=== PATIENT | female | born 1965 | race Caucasian/White ===

== ENCOUNTER 2017-01-17 08:34 | Outpatient (CLI) | payer OTHER ==
[2017-01-17 09:26] LABS: Alanine Aminotransferase 16 units/L (7-56); Albumin 3.8 g/dL (3.9-5); Albumin/Globulin Ratio 1.2 %; Alkaline Phosphatase 76 units/L (35-129); Anion Gap 22 mmol/L; Blood Urea Nitrogen 15 mg/dL (7-17); Calcium 10.1 mg/dL (8.4-10.2); Carbon Dioxide 22 mmol/L (22-30); Chloride 100.5 mmol/L (98-107); Cholesterol 172 mg/dL (50-199); Glucose 98 mg/dL (65-100); HDL Cholesterol 45 mg/dL (40-59); LDL Cholesterol,Direct 82 mg/dL (50-130); Potassium 4.4 mmol/L (3.6-5.0); Sodium 140 mmol/L (137-145); Triglycerides 229 mg/dL (2-149)
== END 2017-01-17 08:35 | disposition home or self-care (01) ==
LOC: LAB 08:34
PROVIDERS: ATTEND Internal Medicine
DX: E11.9 Type 2 diabetes mellitus without complications (principal)
CPT/HCPCS: 36415; 80053; 80061; 83036; 84443

== ENCOUNTER 2017-03-21 13:00 | Outpatient (CLI) | payer SELFPAY ==
--- NOTE | 2017-03-21 13:39 | Mammography Report ---
Bilateral mammogram: Compared to 08/26/14. CAD study utilized. Findings: Predominance adipose tissue bilaterally. No mass or microcalcification. Benign axillary nodes. Impression: Benign findings. Annual followup recommended. BI-RADS CATEGORY: 2 = Benign ACR BI-RADS MAMMOGRAPHIC CODES: 0 = Needs additional imaging evaluation; 1 = Negative; 2 = Benign; 3 = Probably benign; 4 = Suspicious; 5 = Malignant; 6 = Known biopsy-proven malignancy COMMENT: 1. Dense breast tissue, i.e., adenosis, fibrocystic changes, etc., may obscure an underlying neoplasm. 2. Approximately 10% of cancers are not detected with mammography. 3. A negative mammography report should not delay biopsy if a clinically suspicious mass is present. COMMENT: Patient follow-up letters are generated in [employer].
== END 2017-03-21 13:01 | disposition home or self-care (01) ==
LOC: MAMMO 13:00
PROVIDERS: ATTEND Obstetrics & Gynecology Gynecology
DX: Z12.31 Encounter for screening mammogram for malignant neoplasm of breast (principal)
CPT/HCPCS: 77067; G0202

== ENCOUNTER 2017-03-21 20:41 | Inpatient (IN) | payer SELFPAY ==
[2017-03-21 21:41] LABS: Basophils % (Auto) 0.9 % (0.0-1.8); Eosinophils % (Auto) 1.2 % (0.0-4.3); Hematocrit 35.6 % (30.3-42.9); Hemoglobin 11.8 gm/dl (10.1-14.3); Mean Corpuscular HGB Conc 33 % (30-34); Mean Corpuscular Hemoglobin 26 pg (28-32); Mean Corpuscular Volume 80 fl (79-97); Platelet Count 264 K/mm3 (140-440); Red Blood Count 4.48 M/mm3 (3.65-5.03); Red Cell Distribution Width 12.7 % (13.2-15.2); White Blood Count 12.6 K/mm3 (4.5-11.0)
[2017-03-21 21:57] LABS: Anion Gap 25 mmol/L; BUN/Creatinine Ratio 33; Blood Urea Nitrogen 13 mg/dL (7-17); Calcium 9.9 mg/dL (8.4-10.2); Carbon Dioxide 19 mmol/L (22-30); Chloride 77.4 mmol/L (98-107); Glucose 134 mg/dL (65-100); Potassium 3.8 mmol/L (3.6-5.0)
[2017-03-21 22:08] LABS: Sodium 119 mmol/L (137-145)
[2017-03-21] MEDS ORDERED: NACL 0.9% 1000 ML 1,000 ML IV ONE (22:21)
[2017-03-21] MEDS ORDERED: ATIVAN IV ONE (23:06)
[2017-03-21] MEDS ORDERED: ATIVAN ONE (23:09)
--- NOTE | 2017-03-21 23:11 | Emergency Department Report ---
HPI - General Chief Complaint: Dyspnea/Respdistress Time Seen by Provider: 03/21/17 22:21 - HPI HPI: Room 7 The patient is a 51-year-old female presenting with a chief complaint of feeling anxious. Family states for the past 3-4 weeks the patient has been restless and suffering from insomnia. The patient appears anxious and complains intermittently of chest pain, shortness of breath headache. Patient denies nausea or vomiting. When asked how she is feeling right now the patient replies she feels anxious. Location: Mental state, see above Duration:. 4 weeks Quality: Anxious Severity: Moderate Modifying factors: [see above] Context: [see above] Mode of transportation: [not driving] ED Past Medical Hx - Past Medical History Previous Medical History?: Yes Hx Hypertension: Yes Hx Diabetes: Yes Hx Asthma: Yes Additional medical history: HIGH CHOLESTEROL / MENAPAUSE - Surgical History Past Surgical History?: Yes Hx Cholecystectomy: Yes Additional Surgical History: C SECTION - Family History Family history: no significant - Social History Smoking Status: Never Smoker Substance Use Type: None ED Review of Systems ROS: Stated complaint: SOB Other details as noted in HPI Comment: All other systems reviewed and negative Constitutional: denies: chills, fever Eyes: denies: eye pain, eye discharge, vision change ENT: denies: ear pain, throat pain Respiratory: shortness of breath Cardiovascular: chest pain Endocrine: no symptoms reported Gastrointestinal: denies: abdominal pain, nausea, vomiting, diarrhea Genitourinary: denies: urgency, dysuria, discharge Musculoskeletal: denies: back pain, joint swelling, arthralgia Skin: denies: rash, lesions Neurological: headache Psychiatric: denies: anxiety, depression Hematological/Lymphatic: denies: easy bleeding, easy bruising Physical Exam - Physical Exam Vital Signs: Vital Signs 03/21/17 03/21/17 21:01 22:37 Temperature 98.4 F 98 F Pulse Rate 92 H 96 H Respiratory 24 18 Rate Blood Pressure 111/63 Blood Pressure 141/82 [Left] O2 Sat by Pulse 100 100 Oximetry Physical Exam: GENERAL: The patient is well-developed well-nourished female appearing restless on the stretcher frequently moving and changing positions. [] HEENT: Normocephalic. Atraumatic. Extraocular motions are intact. Patient has moist mucous membranes. NECK: Supple. No meningitic signs are noted. Trachea midline CHEST/LUNGS: Clear to auscultation. There is no respiratory distress noted. HEART/CARDIOVASCULAR: Regular. There is tachycardia. There is no gallop rub or murmur. ABDOMEN: Abdomen is soft, nontender. Patient has normal bowel sounds. There is no abdominal distention. SKIN: There is no rash. There is no edema. There is no diaphoresis. NEURO: The patient is awake, alert, and oriented. The patient is cooperative. The patient has no focal neurologic deficits. The patient has normal speech. Cranial nerves II through XII grossly intact. Patient appears restless MUSCULOSKELETAL: There is no evidence of acute injury. ED Course Vital Signs 03/21/17 03/21/17 21:01 22:37 Temperature 98.4 F 98 F Pulse Rate 92 H 96 H Respiratory 24 18 Rate Blood Pressure 111/63 Blood Pressure 141/82 [Left] O2 Sat by Pulse 100 100 Oximetry ED Medical Decision Making - Lab Data Result diagrams: 03/21/17 21:24 03/21/17 21:24 Laboratory Tests 03/21/17 03/21/17 03/21/17 21:24 21:24 21:24 WBC 12.6 H RBC 4.48 Hgb 11.8 Hct 35.6 MCV 80 MCH 26 L MCHC 33 RDW 12.7 L Plt Count 264 Lymph % (Auto) 30.6 [place] % (Auto) 7.8 H Eos % (Auto) 1.2 Baso % (Auto) 0.9 Lymph # 3.9 [place] # 1.0 H Eos # 0.1 Baso # 0.1 Seg Neutrophils % 59.5 Seg Neutrophils # 7.5 Sodium 119 L* Potassium 3.8 Chloride 77.4 L Carbon Dioxide 19 L Anion Gap 25 BUN 13 Creatinine 0.4 L Estimated GFR > 60 BUN/Creatinine Ratio 33 Glucose 134 H Calcium 9.9 Troponin T < 0.010 HCG, Qual Negative - EKG Data -: EKG Interpreted by Me EKG shows normal: sinus rhythm Rate: normal - EKG Data When compared to previous EKG there are: previous EKG unavailable Interpretation: other (no ischemic changes seen) - Radiology Data Radiology results: report reviewed (CT head), image reviewed (chest x-ray, CT head) interpreted by me: Chest x-ray-no focal infiltrate, no pneumothorax CT head (read by radiologist)-no evidence of acute stroke or hemorrhage - Differential Diagnosis ICH, ACS, pericarditis, pneumonia, Critical care attestation.: If time is entered above; I have spent that time in minutes in the direct care of this critically ill patient, excluding procedure time. ED Disposition Clinical Impression: Hyponatremia, Altered mental status, Chest pain Disposition: OP ADMIT IP TO THIS HOSP Is pt being admited?: Yes Does the pt Need Aspirin: Yes Condition: Serious Instructions: Chest Pain (ED) Referrals: PRIMARY CARE, [Primary Care Provider] - 3-5 Days Time of Disposition: 00:47 (Hospitalist paged)
--- NOTE | 2017-03-22 00:24 | Cat Scan Report ---
FINAL REPORT EXAM: CT HEAD/BRAIN WO CON HISTORY: altered mental status, headache, hyponatremia TECHNIQUE: Routine axial imaging was obtained of the brain without IV contrast. FINDINGS: There is no evidence of acute stroke or hemorrhage. The ventricular system is appropriate in size and is symmetric. There are benign basal ganglial calcifications bilaterally. The sinuses reveal minimal mucosal thickening in the sphenoid sinus. The mastoid air cells are well pneumatized. IMPRESSION: No evidence of acute stroke or hemorrhage. Mild mucosal thickening in the sphenoid sinus.
[2017-03-22] MEDS ORDERED: ASPIRIN PO ONE (00:48)
--- NOTE | 2017-03-22 01:19 | History and Physical Report ---
History of Present Illness Date of examination: 03/22/17 Chief complaint: Anxiety History of present illness: 51-year-old female with past medical history significant for diabetes mellitus, hypertension, asthma, eczema was presented to the emergency department for complaints of anxiety, hot flushes for the last 2 months. Patient doesn't speak [place]ic and get history from her family member. She has been feeling, sad, decreased appetite, difficulty of sleeping and anxiety. patient denied Suicidal ideation. patient saw her Steamer Tender for hot flushes and was given hormone patch and didn't help her much. patient has generalized shaking for the last 1 month. She had generalized eczematous rash. REVIEW OF SYSTEMS: GENERAL: decreased weight, no fatigue, no fever HEAD: no head ache EYES: no blurry vision, no acute visual loss EARS: + hearing loss, no discharge, no earache NOSE: no stuffiness, no sneezing, no discharge MOUTH, THROAT AND NECK: no bleeding gums, no sore throat, no swollen neck CARDIAC: no palpitations, no dyspnea on exertion, no orthopnea, no PND, no edema , no chest pain RESPIRATORY: +shortness of breath, no wheeze, no cough, no sputum, no hemoptysis , no asthma GI: no decreased appetite, + nausea, no vomiting, no dysphagia, no diarrhea, no constipation, no abdominal pain URINARY: no change in frequency, no urgency, no polyuria, no hematuria, no incontinence MUSCULOSKELETAL: no muscle weakness, no pain, no joint stiffness NEUROLOGIC: no loss of sensation/numbness, no tingling, no tremors, no weakness/ paralysis HEMATOLOGIC: no anemia, no easy bruising SKIN: no rashes ENDOCRINE: no heat/cold intolerance, no polyuria, no polydipsia, PSYCHIATRIC:+ anxiety, +depression, no suicidal ideations Past History Past Medical History: diabetes, hypertension, other (glaucoma, eczema) Past Surgical History: cholecystectomy Social history: full code. denies: smoking, alcohol abuse, prescription drug abuse, IV drug use Family history: no significant family history Medications and Allergies Allergies Allergy/AdvReac Type Severity Reaction Status Date / Time No Known Allergies Allergy Verified 03/21/17 23:11 Exam - Physical Exam Narrative exam: Not in cardiopulmonary distress. The patient appeared well nourished and normally developed. Vital signs as documented. Head exam is unremarkable. No scleral icterus . Neck is without jugular venous distension, thyromegaly, or carotid bruits. Lungs are clear to auscultation. Cardiac exam reveals regular rate and Rhythm. First and second heart sounds normal. No murmurs, rubs or gallops. Abdominal exam reveals normal bowel sounds, no masses, no organomegaly and no aortic enlargement. Extremities are nonedematous and both femoral and pedal pulses are normal. Skin scattered eczematous rash. GROCERY STORE ASSOCIATE: Alert and oriented 3. No focal weakness. - Constitutional Vitals: Temp Pulse Resp BP Pulse Ox 98 F 96 H 18 141/82 100 03/21/17 22:37 03/21/17 22:37 03/21/17 22:37 03/21/17 22:37 03/21/17 22:37 Results - Labs CBC & Chem 7: 03/21/17 21:24 03/21/17 21:24 Labs: Laboratory Last Values WBC 12.6 K/mm3 (4.5-11.0) H 03/21/17 21:24 RBC 4.48 M/mm3 (3.65-5.03) 03/21/17 21:24 Hgb 11.8 gm/dl (10.1-14.3) 03/21/17 21:24 Hct 35.6 % (30.3-42.9) 03/21/17 21:24 MCV 80 fl (79-97) 03/21/17 21:24 MCH 26 pg (28-32) L 03/21/17 21:24 MCHC 33 % (30-34) 03/21/17 21:24 RDW 12.7 % (13.2-15.2) L 03/21/17 21:24 Plt Count 264 K/mm3 (140-440) 03/21/17 21:24 Lymph % (Auto) 30.6 % (13.4-35.0) 03/21/17 21:24 [place] % (Auto) 7.8 % (0.0-7.3) H 03/21/17 21:24 Eos % (Auto) 1.2 % (0.0-4.3) 03/21/17 21:24 Baso % (Auto) 0.9 % (0.0-1.8) 03/21/17 21:24 Lymph # 3.9 K/mm3 (1.2-5.4) 03/21/17 21:24 [place] # 1.0 K/mm3 (0.0-0.8) H 03/21/17 21:24 Eos # 0.1 K/mm3 (0.0-0.4) 03/21/17 21:24 Baso # 0.1 K/mm3 (0.0-0.1) 03/21/17 21:24 Seg Neutrophils % 59.5 % (40.0-70.0) 03/21/17 21:24 Seg Neutrophils # 7.5 K/mm3 (1.8-7.7) 03/21/17 21:24 Sodium 119 mmol/L (137-145) L* 03/21/17 21:24 Potassium 3.8 mmol/L (3.6-5.0) 03/21/17 21:24 Chloride 77.4 mmol/L (98-107) L 03/21/17 21:24 Carbon Dioxide 19 mmol/L (22-30) L 03/21/17 21:24 Anion Gap 25 mmol/L 03/21/17 21:24 BUN 13 mg/dL (7-17) 03/21/17 21:24 Creatinine 0.4 mg/dL (0.7-1.2) L 03/21/17 21:24 Estimated GFR > 60 ml/min 03/21/17 21:24 BUN/Creatinine Ratio 33 % 03/21/17 21:24 Glucose 134 mg/dL (65-100) H 03/21/17 21:24 Calcium 9.9 mg/dL (8.4-10.2) 03/21/17 21:24 Troponin T < 0.010 ng/mL (0.00-0.029) 03/21/17 21:24 HCG, Qual Negative (Negative) 03/21/17 21:24 - Imaging and Cardiology CT Scan - head: image reviewed (negative) Assessment and Plan Assessment and plan: Hyponatremia Hot flashes/ perimenopausal symptoms Depression Anxiety/ panic attack Chest tightness - Patient is on IV normal saline, check BMP every 6 hours\ - Consult ALMOND PASTE MOLDER, mental health - Venlafaxine for hot flashes and depression DVT prophylaxis - heparin [facility]: Yes VTE prophylaxis?: Chemical Plan of care discussed with patient/family: Yes
[2017-03-22] MEDS ORDERED: ATIVAN PO PRN ×2 (01:21→01:26)
[2017-03-22] MEDS ORDERED: ZOFRAN IV PRN (01:21)
[2017-03-22] MEDS ORDERED: BABY ASPIRIN PO ONE (01:28)
[2017-03-22] MEDS ORDERED: D50W (25GM) Syringe IV PRN (01:36)
[2017-03-22] MEDS ORDERED: PROAIR IH PRN (01:38)
[2017-03-22] MEDS ORDERED: PROVENTIL IH PRN (01:51)
[2017-03-22 02:45] LABS: Anion Gap 19 mmol/L; BUN/Creatinine Ratio 30; Blood Urea Nitrogen 12 mg/dL (7-17); Calcium 8.6 mg/dL (8.4-10.2); Carbon Dioxide 19 mmol/L (22-30); Chloride 85.5 mmol/L (98-107); Glucose 146 mg/dL (65-100)
[2017-03-22] MEDS ORDERED: BABY ASPIRIN ONE (02:56)
[2017-03-22 03:02] LABS: Sodium 119 mmol/L (137-145)
[2017-03-22] MEDS: HEPARIN SUB-Q SCH ×3 (06:46→22:06)
[2017-03-22] MEDS ORDERED: NACL 0.9% 1000 ML 1,000 ML IV SCH (07:00)
--- NOTE | 2017-03-22 07:30 | XRay Report ---
ROUTINE CHEST, TWO VIEWS: HISTORY: Shortness of breath. The trachea, heart, mediastinal contour, lung camacho and bony thorax are unremarkable. IMPRESSION: Unremarkable chest x-ray.
[2017-03-22 07:40] LABS: Anion Gap 16 mmol/L; BUN/Creatinine Ratio 25; Blood Urea Nitrogen 10 mg/dL (7-17); Calcium 8.9 mg/dL (8.4-10.2); Carbon Dioxide 23 mmol/L (22-30); Chloride 89.8 mmol/L (98-107); Glucose 121 mg/dL (65-100); Potassium 3.8 mmol/L (3.6-5.0); Sodium 125 mmol/L (137-145)
[2017-03-22] MEDS: NOVOLOG SUB-Q SCH ×4 (08:18→22:07)
[2017-03-22] MEDS: NACL 0.9% 1000 ML 2,000 ML IV SCH ×3 (08:41→22:05)
[2017-03-22] MEDS: EFFEXOR PO SCH (10:00)
--- NOTE | 2017-03-22 10:28 | Consultation ---
History of Present Illness - Reason for Consult Consult date: 03/22/17 hyponatremia Requesting physician: CARO LESTER - History of Present Illness 51-year-old lady with a history of diabetes mellitus for about 9 years, hypertension who presents on account of 2 months of worsening anxiety, hot flashes with insomnia and poor appetite. Patient has also been having nausea and vomiting for about 2 weeks now and could hardly eat. She had diarrhea on the day of presentation. Patient was found to have a sodium of 119 on presentation and I'm consulted to assist with managing this. Patient was not using any nonsteroidal anti-inflammatory drugs at home. Home medications are not available for review so it is unclear if she was taking a thiazide diuretic. Patient also complains of epigastric pain which is worse after meals and usually leads to nausea and vomiting. Patient feels very anxious at home and would not let them close doors or close the windows. She has episodes of generalized shaking and extreme anxiety. Past History Past Medical History: diabetes, hypertension, other (glaucoma, eczema) Past Surgical History: cholecystectomy, Social history: lives with family (Lives with and 3 sons), full code, other (homemaker). denies: smoking, alcohol abuse, prescription drug abuse, IV drug use Family history: CAD (mother of heart disease), cancer (one brother of stomach cancer and a sister of cancer?site), stroke (father of a stroke. Sister of a stroke at age 45) Medications and Allergies Allergies Allergy/AdvReac Type Severity Reaction Status Date / Time No Known Allergies Allergy Verified 03/21/17 23:11 Home Medications Medication Instructions Recorded Confirmed Last Taken Type No Known Home Medications [No 03/22/17 03/22/17 Unknown History Reported Home Medications] Active Meds: Active Medications Albuterol (Proventil) 2.5 mg IH Q4HRT PRN PRN Reason: Shortness Of Breath Dextrose (D50w (25gm) Syringe) 50 ml IV PRN PRN PRN Reason: Hypoglycemia Heparin Sodium (Porcine) (Heparin) 5,000 unit SUB-Q Q8HR DANIEL Last Admin: 03/22/17 06:46 Dose: 5,000 unit Sodium Chloride (Nacl 0.9% 1000 Ml) 2,000 mls @ 100 mls/hr IV DIRECT DANIEL Last Admin: 10/19/17 10:19 Dose: 100 mls/hr Insulin Aspart (Novolog) 0 units SUB-Q ACHS DANIEL PRN Reason: Protocol Last Admin: 03/22/17 08:18 Dose: Not Given Lorazepam (Ativan) 0.5 mg PO TID PRN PRN Reason: Anxiety Ondansetron HCl (Zofran) 4 mg IV Q8H PRN PRN Reason: N/V unrelieved by Reglan Last Admin: 03/22/17 01:35 Dose: 4 mg Venlafaxine HCl (Effexor) 25 mg PO QDAY [facility] Review of Systems All systems: negative (Constitutional: Patient complains of fever and chills. No anorexia but unfortunately, unable to keep foods/fluids down. No weight loss. HEENT: She admits to soreness in her throat and sinus drainage no hearing or vision impairment . Cardiovascular: No chest pain, but she admits to palpitations, no lower extremity swelling but admits to dizziness. Respiratory : She admits to cough, which is unproductive.no hemoptysis or wheezing. Gastrointestinal: She admits to nausea, vomiting, and abdominal pain as noted in history of present illness. No hematemesis or melena. Genitourinary: No frequency urgency dysuria or hematuria. hematologic: No abnormal bleeding or bruising. Integumentary: no pruritus or rash. Neurological: No headache no focal weakness or numbness, no syncope or seizures. Musculoskeletal: She admits to joint pain and stiffness in both arms and her knees and legs.. Psychiatry: Admits to anxiety and depression. Feels sad most times) Exam - Vital Signs Vital signs: Vital Signs Temp Pulse Resp BP Pulse Ox 98.4 F 92 H 24 111/63 100 03/21/17 21:01 03/21/17 21:01 03/21/17 21:01 03/21/17 21:01 03/21/17 21:01 - Physical Exam Narrative exam: Middle-aged female lying in bed in no acute distress HEENT: NCAT, pink oral mucous membrane Neck: Supple, no venous distention CVS: S1S2 RRR with no murmur, rub or gallop Chest: Clear to auscultation ,good chest expansion Abdomen: Protuberant, soft, mild epigastric tenderness, no organomegaly, bowel sounds are present Extremities: No edema. No clubbing Skin: No rash. Warm and dry Neuro: Awake, alert no focal deficits Results - Lab Results 03/21/17 21:24 03/22/17 06:59 Most recent lab results Calcium 8.9 mg/dL (8.4-10.2) 03/22/17 06:59 Assessment and Plan - Patient Problems (1) Hyponatremia Current Visit: Yes Status: Acute Plan to address problem: Get urine studies. Continue volume repletion with isotonic saline. Follow-up sodium. Hopefully continues to improve slowly (2) Hypotension Current Visit: Yes Status: Acute Qualifiers: Hypotension type: H Trimester: T Plan to address problem: Continue volume repletion with isotonic saline (3) Abdominal pain, epigastric Current Visit: Yes Status: Acute Plan to address problem: Question gastritis versus gastroesophageal reflux disease versus peptic ulcer disease. Consider GI evaluation. Start proton pump inhibitor for now (4) Nausea and vomiting Current Visit: Yes Status: Acute Qualifiers: Vomiting type: V Vomiting Intractability: intractable Plan to address problem: Continue antiemetics and follow up (5) Type 2 diabetes mellitus with unspecified complications Current Visit: Yes Status: Acute Qualifiers: Diabetes mellitus ferry terminal agent insulin use: D Plan to address problem: Blood sugar management by primary attending (6) Essential (primary) hypertension Current Visit: Yes Status: Acute Plan to address problem: Follow up blood pressure (7) Anxiety and depression Current Visit: Yes Status: Acute Plan to address problem: Need psychiatry evaluation
--- NOTE | 2017-03-22 11:49 | Event Note ---
Date: 03/22/17 Patient with hyponatremia, also complain of difficulty swallowing, epigastric pain. I have seen and examined her today. Discussed case with Dr. iRzzo. Will consult GI. Also Cnc Cutting Operator consulted.
--- NOTE | 2017-03-22 12:08 | Gastroenterology Consultation ---
History of Present Illness - Reason for Consult Consult date: 03/22/17 dysphagia, epigastric pain Requesting physician: CARO LESTER - History of Present Illness Patient is a 51 y/o female with PMH of DM, HTN, asthma, eczema who presented to ER with c/o anxiety and hot flashes. She was admitted for hyponatremia. GI has been consulted for difficulty swallowing and epigastric pain. This am pt was resting in bed. No acute distress noted. Pt does not speak [place]ic, but pt's daughter was at bedside an assisted with translation. Pt admits to intermittent epigastric pain that is described as burning x 2 years with pain worsening over the past 2 weeks. Pain is non-radiating and improving with eating, however she c /o occasional nausea with eating but no vomiting. She has taken Maalox at home with no improvement. She also admits to odynophagia with eating or drinking x 2 weeks described as burning. She also admits to slow gradual wt loss of approximately 12 lbs over the past year. Takes Ibuprofen on average once a month. Denies fever, vomiting, hematemesis, dysphagia, or melena. No previous EGD. Fhx of brother with stomach CA. Past History Past Medical History: diabetes, hypertension, other (glaucoma, eczema) Past Surgical History: cholecystectomy, Social history: lives with family (Lives with and 3 sons), full code, other (homemaker). denies: smoking, alcohol abuse, prescription drug abuse, IV drug use Family history: CAD (mother of heart disease), cancer (one brother of stomach cancer and a sister of cancer?site), stroke (father of a stroke. Sister of a stroke at age 45) Medications and Allergies Allergies Allergy/AdvReac Type Severity Reaction Status Date / Time No Known Allergies Allergy Verified 03/21/17 23:11 Home Medications Medication Instructions Recorded Confirmed Last Taken Type No Known Home Medications [No 03/22/17 03/22/17 Unknown History Reported Home Medications] Active Meds: Active Medications Albuterol (Proventil) 2.5 mg IH Q4HRT PRN PRN Reason: Shortness Of Breath Dextrose (D50w (25gm) Syringe) 50 ml IV PRN PRN PRN Reason: Hypoglycemia Heparin Sodium (Porcine) (Heparin) 5,000 unit SUB-Q Q8HR DANIEL Last Admin: 03/22/17 06:46 Dose: 5,000 unit Sodium Chloride (Nacl 0.9% 1000 Ml) 2,000 mls @ 100 mls/hr IV DIRECT ON LICENSE OF [facility] Last Admin: 03/22/17 10:19 Dose: 100 mls/hr Insulin Aspart (Novolog) 0 units SUB-Q ACHS DANIEL PRN Reason: Protocol Last Admin: 03/22/17 12:06 Dose: Not Given Lorazepam (Ativan) 0.5 mg PO TID PRN PRN Reason: Anxiety Ondansetron HCl (Zofran) 4 mg IV Q8H PRN PRN Reason: N/V unrelieved by Reglan Last Admin: 03/22/17 01:35 Dose: 4 mg Venlafaxine HCl (Effexor) 25 mg PO QDAY ON LICENSE OF [facility] Review of Systems - Review of Systems All systems: negative Gastrointestinal: abdominal pain (epigastric burning), nausea, other ( odynophagia) Exam - Constitutional Vital Signs: Temp Pulse Resp BP Pulse Ox 98.2 F 83 20 99/53 98 03/22/17 07:36 03/22/17 07:36 03/22/17 09:13 03/22/17 07:36 03/22/17 07:38 General appearance: no acute distress, well-nourished - EENT Eyes: PERRL, EOM intact ENT: hearing intact - Neck Neck: supple, normal ROM - Respiratory Respiratory: bilateral: CTA - Cardiovascular Rhythm: regular Heart Sounds: Present: S1 & S2 Extremities: No edema - Gastrointestinal General gastrointestinal: Present: soft, non-tender, non-distended, normal bowel sounds - Integumentary Integumentary: Present: warm, dry - Neurologic Neurological: alert and oriented x3 - Labs CBC & Chem 7: 03/21/17 21:24 03/22/17 06:59 Lab Results: Laboratory Results - last 24 hr 03/22/17 03/22/17 03/22/17 01:46 01:46 01:46 Sodium 119 L* Potassium 4.0 Chloride 85.5 L Carbon Dioxide 19 L Anion Gap 19 BUN 12 Creatinine 0.4 L Estimated GFR > 60 BUN/Creatinine Ratio 30 Glucose 146 H POC Glucose Osmolality Uric Acid Calcium 8.6 Vitamin B12 330.2 TSH 0.651 Free T4 1.31 1003/22/17 03/22/17 02:09 04:16 06:48 Sodium Potassium Chloride Carbon Dioxide Anion Gap BUN Creatinine Estimated GFR BUN/Creatinine Ratio Glucose POC Glucose 149 H 130 H Osmolality 255 Uric Acid Calcium Vitamin B12 TSH Free T4 03/22/17 03/22/17 03/22/17 06:59 06:59 08:02 Sodium 125 L D Potassium 3.8 Chloride 89.8 L Carbon Dioxide 23 Anion Gap 16 BUN 10 Creatinine 0.4 L Estimated GFR > 60 BUN/Creatinine Ratio 25 Glucose 121 H POC Glucose 124 H Osmolality Uric Acid 6.2 Calcium 8.9 Vitamin B12 TSH Free T4 03/22/17 11:40 Sodium Potassium Chloride Carbon Dioxide Anion Gap BUN Creatinine Estimated GFR BUN/Creatinine Ratio Glucose POC Glucose 148 H Osmolality Uric Acid Calcium Vitamin B12 TSH Free T4 Assessment and Plan 1.odynophagia 2.epigastric pain 3.nausea 4.hyponatremia 5.hot flashes/perimenopausal symptoms 6.depression 7.anxiety -will start on daily PPI -will schedule for EGD in am -NPO after MN -hold am dose of heparin -continue supportive care -will follow
[2017-03-22] MEDS: PROTONIX PO SCH (13:30)
[2017-03-22 14:12] LABS: Anion Gap 19 mmol/L; BUN/Creatinine Ratio 20; Blood Urea Nitrogen 10 mg/dL (7-17); Calcium 8.8 mg/dL (8.4-10.2); Carbon Dioxide 20 mmol/L (22-30); Chloride 96.1 mmol/L (98-107); Glucose 231 mg/dL (65-100); Potassium 4.3 mmol/L (3.6-5.0); Sodium 131 mmol/L (137-145)
--- NOTE | 2017-03-22 18:19 | Consultation ---
History of Present Illness Consult date: 03/22/17 Requesting physician: YOLI GARCIA Reason for consult: other (menopausal) History of present illness: This is a 51-year-old female last normal period was over year ago. Admitted for altered mental status and anxiety symptoms. Patient does not speaking Chinese her son's were there for interpretation visit. Patient states approximately one month ago she started having increasing feelings of hotness and chills with some shortness of breath and insomnia. She had not had a normal period but did have some day of spotting approximately 2 months ago. Patient does have a pleater which she saw approximately 3 weeks ago was diagnosed as being menopausal and started on hormone replacement. The patient' s shortness of breath shaking is some anxiety and insomnia seemed to increase and therefore her family brought her to the emergency room as noted in her H&P. Patient hormonal patch was removed in emergency room. Patient continuous symptoms and chart reveals that she's been evaluated by cardiology gastroenterology due to difficulty swallowing patient is also weight psychiatry consult due to her anxiety. Call sooner patient due to her menopausal symptoms. Past History Past Medical History: asthma, hypertension, diabetes, other (see H&P for more details) Past Surgical History: cholecystectomy, section Family/Genetic History: other (see H&P for more details) Medications and Allergies Allergies Allergy/AdvReac Type Severity Reaction Status Date / Time No Known Allergies Allergy Verified 03/21/17 23:11 Home Medications Medication Instructions Recorded Confirmed Last Taken Type No Known Home Medications [No 03/22/17 03/22/17 Unknown History Reported Home Medications] Active Meds: Active Medications Albuterol (Proventil) 2.5 mg IH Q4HRT PRN PRN Reason: Shortness Of Breath Dextrose (D50w (25gm) Syringe) 50 ml IV PRN PRN PRN Reason: Hypoglycemia Heparin Sodium (Porcine) (Heparin) 5,000 unit SUB-Q Q8HR DANIEL Last Admin: 03/22/17 14:00 Dose: 5,000 unit Sodium Chloride (Nacl 0.9% 1000 Ml) 2,000 mls @ 100 mls/hr IV DIRECT DANIEL Last Admin: 03/22/17 10:19 Dose: 100 mls/hr Influenza Virus Vaccine Quadrival (Fluarix Quad [id number](36 Mos+)) 0.5 ml IM .ONCE ONE Stop: 03/23/17 12:01 Insulin Aspart (Novolog) 0 units SUB-Q ACHS [facility] PRN Reason: Protocol Last Admin: 03/22/17 12:06 Dose: Not Given Lorazepam (Ativan) 0.5 mg PO TID PRN PRN Reason: Anxiety Ondansetron HCl (Zofran) 4 mg IV Q8H PRN PRN Reason: N/V unrelieved by Reglan Last Admin: 03/22/17 01:35 Dose: 4 mg Pantoprazole Sodium (Protonix) 40 mg PO QDAY [facility] Last Admin: 03/22/17 13:30 Dose: 40 mg Venlafaxine HCl (Effexor) 25 mg PO QDAY [facility] Last Admin: 03/22/17 10:00 Dose: 25 mg Review of Systems Constitutional: chills - Vital Signs Vital signs: Vital Signs Temp Pulse Resp BP Pulse Ox 98.4 F 92 H 24 111/63 100 03/21/17 21:01 03/21/17 21:01 03/21/17 21:01 03/21/17 21:01 03/21/17 21:01 Temp Pulse Resp BP Pulse Ox 98.4 F 95 H 20 108/71 98 03/22/17 16:43 03/22/17 16:43 03/22/17 16:43 03/22/17 16:43 03/22/17 16:43 Results Result Diagrams: 03/21/17 21:24 03/22/17 13:32 Abnormal lab results 03/22/17 03/22/17 03/22/17 Range/Units 01:46 02:09 06:48 Sodium 119 L* (137-145) mmol/L Chloride 85.5 L (98-107) mmol/L Carbon Dioxide 19 L (22-30) mmol/L Creatinine 0.4 L (0.7-1.2) mg/dL Glucose 146 H (65-100) mg/dL POC Glucose 149 H 130 H (70-105) Urine Chloride (110-250) mEq/L 03/22/17 03/22/17 03/22/17 Range/Units 06:59 08:02 11:40 Sodium 125 L D (137-145) mmol/L Chloride 89.8 L (98-107) mmol/L Carbon Dioxide (22-30) mmol/L Creatinine 0.4 L (0.7-1.2) mg/dL Glucose 121 H (65-100) mg/dL POC Glucose 124 H 148 H (70-105) Urine Chloride (110-250) mEq/L 03/22/17 03/22/17 03/22/17 Range/Units 13:32 16:30 16:48 Sodium 131 L (137-145) mmol/L Chloride 96.1 L (98-107) mmol/L Carbon Dioxide 20 L (22-30) mmol/L Creatinine 0.5 L (0.7-1.2) mg/dL Glucose 231 H (65-100) mg/dL POC Glucose 176 H (70-105) Urine Chloride 16.1 L (110-250) mEq/L All other labs normal. Assessment and Plan - Patient Problems (1) Menopause Current Visit: Yes Status: Acute Plan to address problem: Patient did appear to be menopausal due to her history. Patient does state she did not get hormonal testing with her pleater. Patient does have some climacteric symptoms but her symptoms of chills shortness of breath difficulty swallowing are not secondary to menopause and need to be evaluated as her care team is doing presently. Menopause in itself is not a disease and treatments usually for climateric symptoms. Menopause may exacerbate some diseases and especially anxiety. In this case hormonal treatment did not seem to help this patient and appears to that the core etiology of her symptoms need to be evaluated and treated. Discussed this with patient and family and discussed the risks of postmenopausal bleeding that would need to be evaluated that becomes a problem but her menopausal symptoms be treated as outpatient either by her pleater or I can see her in outpatient in my office. I did get the family my office information. Thank you for this consultation we'll sign off at this point and feel free to contact us if further help this needed.
[2017-03-22 19:12] LABS: Anion Gap 15 mmol/L; BUN/Creatinine Ratio 22; Blood Urea Nitrogen 13 mg/dL (7-17); Calcium 8.4 mg/dL (8.4-10.2); Carbon Dioxide 21 mmol/L (22-30); Chloride 97.6 mmol/L (98-107); Glucose 215 mg/dL (65-100); Potassium 3.9 mmol/L (3.6-5.0); Sodium 130 mmol/L (137-145)
[2017-03-23 01:24] LABS: Anion Gap 15 mmol/L; BUN/Creatinine Ratio 20; Blood Urea Nitrogen 10 mg/dL (7-17); Calcium 8.4 mg/dL (8.4-10.2); Carbon Dioxide 20 mmol/L (22-30); Glucose 161 mg/dL (65-100); Potassium 4.3 mmol/L (3.6-5.0); Sodium 131 mmol/L (137-145)
[2017-03-23] MEDS: HEPARIN SUB-Q SCH ×2 (05:31→14:00)
[2017-03-23 07:41] LABS: Hematocrit 34.7 % (30.3-42.9); Hemoglobin 11.2 gm/dl (10.1-14.3); Mean Corpuscular HGB Conc 32 % (30-34); Mean Corpuscular Hemoglobin 26 pg (28-32); Mean Corpuscular Volume 81 fl (79-97); Platelet Count 247 K/mm3 (140-440); Red Blood Count 4.29 M/mm3 (3.65-5.03); Red Cell Distribution Width 13.1 % (13.2-15.2); White Blood Count 7.5 K/mm3 (4.5-11.0)
[2017-03-23 07:52] LABS: INR 0.96 (0.87-1.13)
[2017-03-23 07:53] LABS: Anion Gap 14 mmol/L; BUN/Creatinine Ratio 18; Blood Urea Nitrogen 9 mg/dL (7-17); Calcium 8.5 mg/dL (8.4-10.2); Carbon Dioxide 22 mmol/L (22-30); Chloride 104.3 mmol/L (98-107); Glucose 124 mg/dL (65-100); Potassium 4.3 mmol/L (3.6-5.0); Sodium 136 mmol/L (137-145)
[2017-03-23] MEDS: NOVOLOG SUB-Q SCH ×3 (08:11→17:54)
--- NOTE | 2017-03-23 09:13 | Progress Note ---
Assessment and Plan - Patient Problems (1) Hyponatremia Current Visit: Yes Status: Acute Plan to address problem: Hypovolemic hyponatremia resolving with saline infusion. Sodium has improved to normal. (2) Hypotension Current Visit: Yes Status: Acute Qualifiers: Hypotension type: H Trimester: T Plan to address problem: Continue volume repletion with isotonic saline (3) Abdominal pain, epigastric Current Visit: Yes Status: Acute Plan to address problem: Question gastritis versus gastroesophageal reflux disease versus peptic ulcer disease. Continue proton pump inhibitor (4) Nausea and vomiting Current Visit: Yes Status: Acute Qualifiers: Vomiting type: V Vomiting Intractability: intractable Plan to address problem: Continue antiemetics . Scheduled for EGD this morning (5) Type 2 diabetes mellitus with unspecified complications Current Visit: Yes Status: Acute Qualifiers: Diabetes mellitus terminal press operator insulin use: D Plan to address problem: Blood sugar management by primary attending (6) Essential (primary) hypertension Current Visit: Yes Status: Acute Plan to address problem: Follow up blood pressure (7) Anxiety and depression Current Visit: Yes Status: Acute Plan to address problem: Need psychiatry evaluation Subjective Date of service: 03/23/17 Principal diagnosis: ESRD Objective - Exam Narrative Exam: Middle-aged female lying in bed in no acute distress HEENT: NCAT, pink oral mucous membrane Neck: Supple, no venous distention CVS: S1S2 RRR with no murmur, rub or gallop Chest: Clear to auscultation ,good chest expansion Abdomen: Protuberant, soft, mild epigastric tenderness, no organomegaly, bowel sounds are present Extremities: No edema. No clubbing Skin: No rash. Warm and dry Neuro: Awake, alert no focal deficits - Vital Signs Vital signs: Vital Signs - 12hr 03/22/17 03/23/17 23:37 07:36 Temperature 98.6 F 98.8 F Pulse Rate 90 85 Respiratory 18 20 Rate Blood Pressure 136/77 113/65 O2 Sat by Pulse 96 98 Oximetry - Lab 03/23/17 07:20 03/23/17 07:20 Most recent lab results Calcium 8.5 mg/dL (8.4-10.2) 03/23/17 07:20 Urine Sodium 24 mEq/L 03/22/17 16:30
[2017-03-23] MEDS ORDERED: NACL 0.9% 1000 ML 1,000 ML ONE (10:31)
[2017-03-23] MEDS ORDERED: WATER FOR IRRIG STERILE IR ONE ×2 (10:32→15:52)
[2017-03-23] MEDS ORDERED: Fluarix Quad 2017-2018(36 MOS+) IM ONE (12:00)
[2017-03-23] MEDS: NACL 0.9% 1000 ML 2,000 ML IV SCH (13:09)
[2017-03-23] MEDS ORDERED: XYLOCAINE MPF 2% ONE (15:00)
--- NOTE | 2017-03-23 15:49 | Anesthesia Consultation ---
Anesthesia Consult and Med Hx Date of service: 03/23/17 - Airway Anesthetic Teeth Evaluation: Poor (multiple missing teeth) ROM Head & Neck: Adequate Mental/Hyoid Distance: Adequate Mallampati Class: Class II Intubation Access Assessment: Probably Good - Pre-Operative Health Status ASA Pre-Surgery Classification: ASA3 Proposed Anesthetic Plan: MAC - Pulmonary Hx Smoking: No Hx Asthma: Yes COPD: No - Cardiovascular System Hx Hypertension: Yes - Central Nervous System Hx Psychiatric Problems: Yes (anxiety) - Gastrointestinal Hx Gastroesophageal Reflux Disease: Yes (dysphagea) - Endocrine Hx End Stage Renal Disease: No Hx Cirrhosis: No Hx Non-Insulin Dependent Diabetes: Yes - Other Systems Hx Cancer: No
--- NOTE | 2017-03-23 15:52 | Anesthesia Day of Surgery ---
Anesthesia Day of Surgery - Day of Surgery Patient Examined: Yes Patient H&P Reviewed: Yes Patient is NPO: Yes
--- NOTE | 2017-03-23 15:53 | Anesthesia Day of Surgery ---
Anesthesia Day of Surgery - Day of Surgery Patient Examined: Yes Patient H&P Reviewed: Yes Patient is NPO: Yes
[2017-03-23] MEDS ORDERED: DIPRIVAN 10 MG/ML IV ONE (15:57)
--- NOTE | 2017-03-23 16:04 | Post Operative Note ---
Pre-op diagnosis: dysphagia Post-op diagnosis: same Findings: EGD: hiatal hernia - ring g-e junction s/p Héctor 60F dilation - antral gastritis (bx's) - negative other Procedure: EGD Anesthesia: MAC Surgeon: ADT MEDINA Estimated blood loss: none Pathology: list Specimen disposition: to lab Condition: stable Disposition: floor
--- NOTE | 2017-03-23 16:35 | Post Anesthesia Evaluation ---
- Post Anesthesia Evaluation Patient Participated: Yes Airway Patent: Yes Stable Respiratory Function: Yes Nausea/Vomiting: No Temp > 96.8F: Yes Pain Manageable: Yes Adequeate Hydration: Yes Anesthesia Complications: No Block Receding Appropriately: Not Applicable Patient on Ventilator: No
--- NOTE | 2017-03-23 16:43 | Discharge Summary ---
Providers - Providers Date of Admission: 03/22/17 01:19 Date of discharge: 03/23/17 Attending physician: CARO LESTER 03/22/17 01:23 Consult to Physician [CONS] Routine Consulting Provider: [facility] Reason For Exam: Hot flash/ perimenopausal symptoms Place consult to:: [facility]/ Notified:: OFFICE Phone number called:: [phone] Was contact made?: Yes If yes, spoke with:: ZENIA Kulkarni called:: 11:01 Comment:: QUAN NOTIFCHERRI 03/22/17 01:25 Consult to Mental Health [CONS] Routine Reason For Exam: Depression Place consult to:: Mental health Notified:: ELIZABETH Phone number called:: [phone] Was contact made?: Yes If yes, spoke with:: ELIZABETH Kulkarni called:: 11:52 Comment:: QUAN NOTIFCHERRI 03/22/17 08:04 Consult to Physician [CONS] Routine Consulting Provider: BARNEY JENSEN Reason For Exam: hyponatremia Place consult to:: DR. JENSEN Notified:: DR. JENSEN Phone number called:: IN HOUSE Was contact made?: Yes If yes, spoke with:: DR. JENSEN Time called:: 09:49 03/22/17 11:10 Consult to Physician [CONS] Routine Consulting Provider: DAT BAUMANN Reason For Exam: Diffifulty swallowing, epigastric pain Place consult to:: DR. Ervin BAUMANN Notified:: OFFICE Phone number called:: [phone] Was contact made?: Yes If yes, spoke with:: NATHAN Kulkarni called:: 11:50 Comment:: QUAN NOTIFCHERRI Speech Therapy Evaluation and Treat [CONS] Routine Reason For Exam: swallow evaluation Primary care physician: [employer] Hospitalization Condition: Fair Disposition: DC-01 TO HOME OR SELFCARE - Discharge Diagnoses (1) Anxiety and depression Status: Acute (2) Hyponatremia Status: Acute Core Measure Documentation - Palliative Care Palliative Care/ Comfort Measures: Not Applicable - Core Measures Any of the following diagnoses?: none Exam - Constitutional Vitals: Temp Pulse Resp BP Pulse Ox 98.8 F 86 15 130/85 97 03/23/17 13:02 03/23/17 13:02 03/23/17 13:02 03/23/17 13:02 03/23/17 13:02 Plan Activity: no restrictions Diet: other (Soft diet, advance as tolerated) Additional Instructions: 1.Follow up with PCP or [facility] in 1 week. 2.Follow up with Dr. Selvin Baumann GI in 1 week. 3.Follow up with [employer] in 1 week. 3.Repeat BMP in 1 week to be followed by PCP Follow up with: PRIMARY CARE, [Primary Care Provider] - 3-5 Days Prescriptions: Omeprazole 20 mg PO DAILY #30 tablet.
[2017-03-23 16:45] VITALS: BP 140/83
--- NOTE | 2017-03-23 17:20 | Operative Report ---
PROCEDURE: EGD with cold biopsies and Anaya dilatation. INDICATION: 1. Epigastric pain. 2. Dysphagia. MEDICATIONS: Propofol per LETTERSET PRESS SET UP OPERATOR. COMPLICATIONS: None. DESCRIPTION OF PROCEDURE: The patient was brought to the procedure suite. The patient had the procedure discussed with her at length. All risks, complications, and benefits were discussed after which the patient has signed for the procedure to be performed. The patient was placed in left lateral decubitus position. Mouth block was placed in the patient's oral cavity. After adequate sedation with medication as above, the endoscope was introduced into the mouth and brought to the level of the second portion of duodenum. Retroflexion view performed. The patient's vital signs remained stable throughout the procedure FINDINGS: There was a small ring-like appearance to the esophagus, raising the possibility of eosinophilic esophagitis. Biopsies were taken of the esophageal body and sent to pathology. There was noted to be a mild Raynaud's at GE junction with erythema, 38 cm from the gums. Biopsies were taken and sent to pathology. There was a medium hiatal hernia at GE junction. The esophagus otherwise appeared to be normal. Mild antral gastritis was noted. Biopsies were taken and sent to pathology. The remaining stomach otherwise appeared to be normal. Duodenum appeared to be normal. Retroflexion view performed at the stomach showed no other pathology other than noted above. After this, especially using standard technique, Anaya dilatation using a 60-Khmer Anaya was performed. Postprocedure, the patient was satisfactory. The patient tolerated the procedure well. No complications during the procedure. IMPRESSION: 1. Hiatal hernia. 2. Irregular Z line, biopsies performed. 3. Mildly obstructing ring at gastroesophageal junction, status post Anaya dilatation using a 60-Khmer Anaya. 4. Ring-like esophagus with biopsies taken. 5. Gastritis, biopsies performed. 6. Otherwise, normal esophagus. PLAN: 1. Follow up biopsy results. 2. PPI daily. 3. Advance diet. 4. Okay to discharge from GI standpoint in the a.m. if stable and tolerating p.o. JOB# [id number] [facility]
[2017-03-23] MEDS: EFFEXOR PO SCH (17:40)
[2017-03-23] MEDS: PROTONIX PO SCH (17:40)
== END 2017-03-23 19:28 | disposition home or self-care (01) | DRG 641 ==
LOC: ED 20:41 → 3A 03-22 01:19
PROVIDERS: ADMIT Internal Medicine; ATTEND Internal Medicine
PROC: 3E0234Z Introduction of Serum, Toxoid and Vaccine into Muscle, Percutaneous Approach (ICD-10-PCS; principal; 2017-03-23)
PROC: 0DB48ZX Excision of Esophagogastric Junction, Via Natural or Artificial Opening Endoscopic, Diagnostic (ICD-10-PCS; 2017-03-23)
PROC: 0DB68ZX Excision of Stomach, Via Natural or Artificial Opening Endoscopic, Diagnostic (ICD-10-PCS; 2017-03-23)
PROC: 0DB58ZX Excision of Esophagus, Via Natural or Artificial Opening Endoscopic, Diagnostic (ICD-10-PCS; 2017-03-23)
DX: E87.1 Hypo-osmolality and hyponatremia (principal); F41.9 Anxiety disorder, unspecified; E11.9 Type 2 diabetes mellitus without complications; I10 Essential (primary) hypertension; F32.9 Major depressive disorder, single episode, unspecified; H40.9 Unspecified glaucoma; Z90.49 Acquired absence of other specified parts of digestive tract; Z82.3 Family history of stroke; Z82.49 Family history of ischemic heart disease and other diseases of the circulatory system; Z80.0 Family history of malignant neoplasm of digestive organs; Z23 Encounter for immunization; I73.00 Raynaud's syndrome without gangrene; K44.9 Diaphragmatic hernia without obstruction or gangrene; K29.70 Gastritis, unspecified, without bleeding
CPT/HCPCS: 36415; 70450; 71020; 80048; 82436; 82607; 82962; 83930; 83935; 84300; 84439; 84443; 84484; 84550; 84703; 85025; 85027; 85610; 88305; 88342; 90686; 93005; 93010; 96361; 96374; 99285; J1644; J2060; J2405; J2704; J7030

== ENCOUNTER 2017-05-17 13:00 | Outpatient (CLI) | payer SELFPAY ==
[2017-05-17 13:38] LABS: Hematocrit 36.1 % (30.3-42.9); Mean Corpuscular HGB Conc 33 % (30-34); Mean Corpuscular Hemoglobin 27 pg (28-32); Mean Corpuscular Volume 81 fl (79-97); Platelet Count 307 K/mm3 (140-440); Red Blood Count 4.45 M/mm3 (3.65-5.03); Red Cell Distribution Width 13.4 % (13.2-15.2); White Blood Count 9.5 K/mm3 (4.5-11.0)
[2017-05-17 13:44] LABS: Chloride 95.6 mmol/L (98-107); Potassium 4.4 mmol/L (3.6-5.0)
[2017-05-17 14:19] LABS: Anisocytosis 1+; Basophils % (Manual) 0 % (0.0-1.8); Blastocytes % (Manual) 0 %; Diff Status Complete; Ovalocytes 1+
== END 2017-05-17 13:01 | disposition home or self-care (01) ==
LOC: LAB 13:00
PROVIDERS: ATTEND Internal Medicine
DX: E11.9 Type 2 diabetes mellitus without complications (principal); I10 Essential (primary) hypertension; E78.5 Hyperlipidemia, unspecified; E78.00 Pure hypercholesterolemia, unspecified; J45.909 Unspecified asthma, uncomplicated; K21.9 Gastro-esophageal reflux disease without esophagitis
CPT/HCPCS: 36415; 80051; 85007; 85025

== ENCOUNTER 2017-05-20 11:32 | Emergency (ER) | payer OTHER ==
[2017-05-20 12:06] LABS: Basophils % (Auto) 0.8 % (0.0-1.8); Eosinophils % (Auto) 1.3 % (0.0-4.3); Hematocrit 36.2 % (30.3-42.9); Mean Corpuscular HGB Conc 33 % (30-34); Mean Corpuscular Hemoglobin 27 pg (28-32); Mean Corpuscular Volume 80 fl (79-97); Platelet Count 338 K/mm3 (140-440); Red Blood Count 4.52 M/mm3 (3.65-5.03); Red Cell Distribution Width 13.2 % (13.2-15.2); White Blood Count 10.2 K/mm3 (4.5-11.0)
[2017-05-20 12:10] LABS: Bilirubin,Urine NEG (Negative); Blood,Urine NEG (Negative); Ketones,Urine NEG (Negative); Leukocyte Esterase,Urine NEG (Negative); Nitrite,Urine NEG (Negative); Protein,Urine <15 mg/dL mg/dL (Negative); Urobilinogen,Urine < 2.0 mg/dL (<2.0); WBC,Urine < 1.0 /HPF (0.0-6.0)
[2017-05-20 12:12] LABS: Alanine Aminotransferase 16 units/L (7-56); Albumin/Globulin Ratio 1.2 %; Alkaline Phosphatase 72 units/L (35-129); Anion Gap 19 mmol/L; BUN/Creatinine Ratio 30; Blood Urea Nitrogen 18 mg/dL (7-17); Calcium 10.1 mg/dL (8.4-10.2); Carbon Dioxide 24 mmol/L (22-30); Chloride 91.2 mmol/L (98-107); Glucose 149 mg/dL (65-100); Lipase 53 units/L (13-60); Potassium 4.8 mmol/L (3.6-5.0); Sodium 129 mmol/L (137-145); Total Protein 7.3 g/dL (6.3-8.2)
[2017-05-20] MEDS ORDERED: NACL 0.9% 1000 ML 1,000 ML IV ONE ×3 (15:41→17:44)
[2017-05-20] MEDS ORDERED: ZOFRAN IV ONE (15:41)
[2017-05-20] MEDS ORDERED: MORPHINE IV ONE (15:53)
[2017-05-20] MEDS ORDERED: DILAUDID IV ONE (15:54)
[2017-05-20] MEDS ORDERED: NACL ONE (15:59)
[2017-05-20] MEDS ORDERED: DILAUDID ONE (16:07)
--- NOTE | 2017-05-20 16:43 | Emergency Department Report ---
ED N/V/D HPI - General Chief complaint: Nausea/Vomiting/Diarrhea Stated complaint: STOMACH PAIN Time Seen by Provider: 05/20/17 15:40 Source: patient, family, old records reviewed Mode of arrival: Ambulatory Limitations: Language Barrier - History of Present Illness Initial comments: 51-year-old female with a past medical history of asthma, diabetes, hypertension , elevated cholesterol, previous cholecystectomy and presents to the hospital with complaints of epigastric pain 2 days. Pain is Sharp, intermittent, worse to palpation and moderate to severe in intensity. Positive associated nausea vomiting and decreased appetite. Denies melena, hematochezia , diarrhea, fever, or hematemesis Patient was admitted here in March for hyponatremia (119), vomiting, epigastric pain. EGD at that time shows hiatal hernia, irregular Z line, mildly obstructing ring at the gastroesophageal junction status post Elizabeth dilatation, ringlike esophagus, gastritis. BIopiseis performed. Pathology was + for H pylori - Related Data Previous Rx's Medication Instructions Recorded Last Taken Type Omeprazole 20 mg PO DAILY #30 tablet. 03/23/17 Unknown Rx HYDROcodone/APAP 5-325 [Lockney 1 each PO Q6HR PRN #20 tablet 05/20/17 Unknown Rx 5/325] Ondansetron [Zofran Odt] 4 mg PO Q8HR PRN #20 tab.rapdis 05/20/17 Unknown Rx Allergies Allergy/AdvReac Type Severity Reaction Status Date / Time No Known Allergies Allergy Unverified 12/15/16 12:08 ED Review of Systems ROS: Stated complaint: STOMACH PAIN Other details as noted in HPI Comment: All other systems reviewed and negative Other: Constitutional: No fevers chills Eyes: No eye pain visual changes ENT: No ear pain or throat pain Neck: Denies pain Respiratory: Denies cough wheezing shortness of breath Cardiovascular: Denies chest pain, palpitations, syncope GI: as per hpi : Denies dysuria Musculoskeletal: Denies back pain, joint swelling Skin: Denies rash, lesions, erythema Neurologic: Denies headache, numbness, weakness Psychiatric: Denies suicidal ideation, hallucinations ED Past Medical Hx - Past Medical History Hx Hypertension: Yes Hx Diabetes: Yes Hx Asthma: Yes Hx COPD: No Hx HIV: No Additional medical history: HIGH CHOLESTEROL / MENAPAUSE - Surgical History Past Surgical History?: Yes Hx Cholecystectomy: Yes Additional Surgical History: C SECTION - Social History Smoking Status: Never Smoker Substance Use Type: None - Medications Home Medications: Home Medications Medication Instructions Recorded Confirmed Last Taken Type Omeprazole 20 mg PO DAILY #30 tablet. 03/23/17 Unknown Rx HYDROcodone/APAP 5-325 [Lockney 1 each PO Q6HR PRN #20 tablet 05/20/17 Unknown Rx 5/325] Ondansetron [Zofran Odt] 4 mg PO Q8HR PRN #20 tab.rapdis 05/20/17 Unknown Rx ED Physical Exam - General Limitations: Language Barrier - Other Other exam information: General: No limitations, patient is alert in no acute distress Head exam: Atraumatic, normocephalic Eyes exam: Normal appearance, pupils equal reactive to light, extraocular movements intact ENT: Moist mucous membrane, normal oropharynx Neck exam: Normal inspection, full range of motion, no meningismus nontender Respiratory exam: Clear to auscultation bilateral, no wheezes, rales, crackles Cardiovascular: Normal rate and rhythm, normal heart sounds Abdomen: Soft, nondistended, epigastric tenderness, no bowel sounds, no rebound or guarding Extremity: Full range of motion normal inspection no deformity Back: Normal Inspection, full range of motion, no tenderness Neurologic: Alert, oriented x3, cranial nerves intact, no motor or sensory deficit Psychiatric: normal affect, normal mood Skin: Warm, dry, intact ED Course Vital Signs 05/20/17 05/20/17 05/20/17 11:34 15:26 18:49 Temperature 98.6 F 98.3 F Pulse Rate 103 H 91 H 88 Respiratory 20 18 16 Rate Blood Pressure 150/93 101/71 Blood Pressure 114/72 [Right] O2 Sat by Pulse 100 100 100 Oximetry - Reevaluation(s) Reevaluation #1: 05/20/17 19:08 Patient feels much better with ED treatment including Zofran, normal saline, and Dilaudid Patient received 2 L of normal saline for mild hyponatremia Tolerating by mouth intake at this time ED Medical Decision Making - Lab Data Result diagrams: 05/20/17 11:40 05/20/17 11:40 - Radiology Data Radiology results: report reviewed us abd: previous cholecystectomy. no other acute fidnigns - Medical Decision Making After all results I reviewed pts medications. Patient apparently had a recent endoscopy and is currently on treatment for H. pylori, including antibiotics and PPI. Other medications reviewed and patient is also on meloxicam, lisinopril/HCTZ and oral diabetes medication. Patient instructed to discontinue meloxicam due to epigastric symptoms. Instead she will be treated with a narcotic medication for pain. Patient and family also informed that her sodium is low today at 129. Patient received 2 L of normal saline prior to discharge. I suspect that the hydrochlorothiazide is the culprit in combination with n/v. Family member states that recent labs include a sodium recently drawn by PMD and pending. Patient will be given a copy of her labs from today and referred to PMD for repeat testing and to decide if hydrochlorothiazide should be discontinued. Patient instructed continue her pressure medication as prescribed at this time. I attempted to contact PMD Dr Clark to discuss case but he office just allows voicemail message and no ability to page. ct a/p IV contrast unremarkable Patient requests and medication to help her sleep for chronic insomnia and probable anxiety - Differential Diagnosis pancreatitis, hepatitis, gastritis, gastroenteritis Critical Care Time: No Critical care attestation.: If time is entered above; I have spent that time in minutes in the direct care of this critically ill patient, excluding procedure time. ED Disposition Clinical Impression: Gastritis, H. pylori infection, Hyponatremia, Nausea and vomiting, Type 2 diabetes mellitus with unspecified complications Disposition: DC/TX-65 PSY HOSP/PSY UNIT Is pt being admited?: No Does the pt Need Aspirin: No Condition: Stable Instructions: Gastritis (ED), Helicobacter Pylori (ED) Additional Instructions: Take the medication as prescribed. Your sodium level today was 129. You received 2 L of normal saline IV fluids to help increase your level. You currently taking lisinopril/hydrochlorothiazide for your blood pressure. Hydrochlorothiazide is a diuretic and can cause a dropping in your sodium especially in combination with nausea and vomiting. Please take the copy of the labs provided to your primary care doctor so he may continue to closely monitor your sodium level. Please return if symptoms worsen as indicated by your discharge instructions. STOP the meloxicam because it may increase the inflammation of your stomach Prescriptions: HYDROcodone/APAP 5-325 [Lockney 5/325] 1 each PO Q6HR PRN #20 tablet PRN Reason: Pain Ondansetron [Zofran Odt] 4 mg PO Q8HR PRN #20 tab.rapdis PRN Reason: Nausea And Vomiting Referrals: CARO DEMPSEY MD [Staff Physician] - 2-3 Days Time of Disposition: 19:10
--- NOTE | 2017-05-20 17:17 | Cat Scan Report ---
FINAL REPORT PROCEDURE: CT abdomen and pelvis with contrast. TECHNIQUE: Computerized axial tomography of the abdomen and pelvis was performed after the IV injection of iodinated nonionic contrast. HISTORY: Epigastric abdominal pain, nausea and vomiting. COMPARISON: No prior studies are available for comparison. FINDINGS: The lung bases are clear. There are no pleural effusions. The heart size is normal. The liver, pancreas and spleen appear normal. The gallbladder has been removed. There is no biliary dilatation. The adrenal glands are not enlarged. Both kidneys appear normal in size and configuration. The abdominal aorta has a normal caliber. There is no retroperitoneal adenopathy. The unopacified gastrointestinal tract is unremarkable. A normal appendix is visible. The bladder, uterus and adnexal regions appear normal. The regional skeleton appears intact. IMPRESSION: Previous cholecystectomy. Otherwise normal studies of the abdomen and pelvis.
[2017-05-20 20:16] VITALS: BP 131/84
== END 2017-05-20 20:16 ==
LOC: ED 11:32
DX: K29.70 Gastritis, unspecified, without bleeding (principal); A04.8 Other specified bacterial intestinal infections; E11.8 Type 2 diabetes mellitus with unspecified complications; E87.1 Hypo-osmolality and hyponatremia; I10 Essential (primary) hypertension; J45.909 Unspecified asthma, uncomplicated; E78.00 Pure hypercholesterolemia, unspecified; Z90.49 Acquired absence of other specified parts of digestive tract
CPT/HCPCS: 36415; 74177; 80053; 81001; 82962; 83690; 85025; 96361; 96374; 96375; 99285; J1170; J2405; J7030; Q9967

== ENCOUNTER 2017-05-21 21:29 | Emergency (ER) | payer SELFPAY ==
[2017-05-21 22:44] LABS: Basophils % (Auto) 1.1 % (0.0-1.8); Eosinophils % (Auto) 3.1 % (0.0-4.3); Hematocrit 36.2 % (30.3-42.9); Hemoglobin 12.1 gm/dl (10.1-14.3); Mean Corpuscular HGB Conc 33 % (30-34); Mean Corpuscular Hemoglobin 27 pg (28-32); Mean Corpuscular Volume 81 fl (79-97); Platelet Count 315 K/mm3 (140-440); Red Blood Count 4.46 M/mm3 (3.65-5.03); Red Cell Distribution Width 13.5 % (13.2-15.2); White Blood Count 8.1 K/mm3 (4.5-11.0)
[2017-05-21 22:52] LABS: Alanine Aminotransferase 17 units/L (7-56); Albumin 4.3 g/dL (3.9-5); Albumin/Globulin Ratio 1.3 %; Alkaline Phosphatase 79 units/L (35-129); Anion Gap 20 mmol/L; BUN/Creatinine Ratio 17; Bilirubin,Total < 0.20 mg/dL (0.1-1.2); Blood Urea Nitrogen 12 mg/dL (7-17); Carbon Dioxide 25 mmol/L (22-30); Chloride 95.4 mmol/L (98-107); Glucose 147 mg/dL (65-100); Potassium 4.9 mmol/L (3.6-5.0); Sodium 135 mmol/L (137-145); Total Protein 7.6 g/dL (6.3-8.2)
[2017-05-22 00:09] LABS: Urine Drugs of Abuse Note Disclamer
[2017-05-22 00:30] LABS: Bilirubin,Urine NEG (Negative); Blood,Urine NEG (Negative); Ketones,Urine NEG (Negative); Leukocyte Esterase,Urine SM (Negative); Nitrite,Urine NEG (Negative); Protein,Urine <15 mg/dL mg/dL (Negative); Urobilinogen,Urine < 2.0 mg/dL (<2.0)
[2017-05-22] MEDS ORDERED: NARCAN 2 MG/2 ML IV ONE (02:26)
--- NOTE | 2017-05-22 02:27 | Emergency Department Report ---
History of Present Illness - General Chief Complaint: Overdose Stated Complaint: OVERDOSE Time Seen by Provider: 05/22/17 01:23 Source: patient, family Mode of arrival: Ambulatory Limitations: Other - History of Present Illness Initial Comments: 51-year-old female seen yesterday D given Neely Rx. She's been depressed all day per family history is from family. They went in bottle had initially been Rx #20. Family states there were only 11 left. They were Neely with acet and 325mg and patient may have had up to 9 of them. Son now relates that she is acting abnormal she is non-Cambodian speaking and refuses to give me any history. She does appear depressed is crying and seems to have flight of ideas and ayana. She does have a stable airway she is crying has a non-neuro nonfocal neuro. Awake and alert following commands no stridor or drooling was stable airway Intent: unwilling to say Context: Intentional Overdose: relationship problems Associated Symptoms: depression - Related Data Previous Rx's Medication Instructions Recorded Last Taken Type Omeprazole 20 mg PO DAILY #30 tablet. 03/23/17 Unknown Rx HYDROcodone/APAP 5-325 [Neely 1 each PO Q6HR PRN #20 tablet 05/20/17 Unknown Rx 5/325] Ondansetron [Zofran Odt] 4 mg PO Q8HR PRN #20 tab.rapdis 05/20/17 Unknown Rx Allergies Allergy/AdvReac Type Severity Reaction Status Date / Time No Known Allergies Allergy Unverified 12/15/16 12:08 ED Review of Systems ROS: Stated complaint: OVERDOSE Other details as noted in HPI Comment: Unobtainable due to pts medical conditions ED Past Medical Hx - Past Medical History Previous Medical History?: Yes Hx Hypertension: Yes Hx Diabetes: Yes Hx Asthma: Yes Hx COPD: No Hx HIV: No Additional medical history: HIGH CHOLESTEROL / MENAPAUSE - Surgical History Hx Cholecystectomy: Yes Additional Surgical History: C SECTION - Social History Smoking Status: Never Smoker - Medications Home Medications: Home Medications Medication Instructions Recorded Confirmed Last Taken Type Omeprazole 20 mg PO DAILY #30 tablet. 03/23/17 Unknown Rx HYDROcodone/APAP 5-325 [Neely 1 each PO Q6HR PRN #20 tablet 05/20/17 Unknown Rx 5/325] Ondansetron [Zofran Odt] 4 mg PO Q8HR PRN #20 tab.rapdis 05/20/17 Unknown Rx ED Physical Exam - General Limitations: Language Barrier, Other General appearance: in no apparent distress, other (uncooperative with exam tearful refusing further history poorly cooperative with physical exam however awake and arousable stable airway) - Head Head exam: Present: atraumatic, normocephalic - Eye Eye exam: Present: PERRL, EOMI - ENT ENT exam: Present: normal exam - Neck Neck exam: Present: normal inspection, full ROM. Absent: tenderness, meningismus - Respiratory Respiratory exam: Present: normal lung sounds bilaterally. Absent: respiratory distress, wheezes, rales, rhonchi, stridor - Cardiovascular Cardiovascular Exam: Present: regular rate, normal heart sounds - GI/Abdominal GI/Abdominal exam: Present: soft. Absent: distended, tenderness, guarding, rebound, mass - Extremities Exam Extremities exam: Present: normal inspection, full ROM, normal capillary refill. Absent: pedal edema, joint swelling, calf tenderness - Back Exam Back exam: Present: normal inspection. Absent: CVA tenderness (L), vertebral tenderness - Neurological Exam Neurological exam: Present: alert, altered, CN II-XII intact. Absent: motor sensory deficit - Psychiatric Psychiatric exam: Present: depressed, agitated, anxious, manic - Skin Skin exam: Present: warm. Absent: cyanosis, diaphoretic, erythema, urticaria, vesicles, petechiae, pallor ED Course Vital Signs 05/21/17 05/22/17 05/22/17 21:54 00:29 00:47 Temperature 98.2 F 98.1 F Pulse Rate 75 79 79 Respiratory 18 18 Rate Blood Pressure 150/84 136/79 Blood Pressure 136/79 [Left] O2 Sat by Pulse 97 98 98 Oximetry 05/22/17 05/22/17 05/22/17 00:52 00:56 02:30 Temperature Pulse Rate 83 Respiratory 11 L Rate Blood Pressure 162/88 158/94 Blood Pressure [Left] O2 Sat by Pulse 99 99 98 Oximetry 05/22/17 05/22/17 05/22/17 02:45 02:56 03:01 Temperature Pulse Rate Respiratory 16 Rate Blood Pressure 134/84 159/94 Blood Pressure [Left] O2 Sat by Pulse 99 100 100 Oximetry 05/22/17 04:22 Temperature Pulse Rate 86 Respiratory 13 Rate Blood Pressure Blood Pressure 126/79 [Left] O2 Sat by Pulse 97 Oximetry ED Medical Decision Making - Lab Data Result diagrams: 05/21/17 22:18 05/21/17 22:18 - EKG Data -: EKG Interpreted by Me EKG shows normal: ST-T waves (no acute ischemic change) Rate: normal - EKG Data When compared to previous EKG there are: no significant change - Radiology Data Radiology results: report reviewed interpreted by me: Volume loss no acute process - Medical Decision Making Patient is medically cleared repeat Tylenol level less than 15. CT head no acute process laboratory studies unremarkable 1013 placed for psychiatric Critical care attestation.: If time is entered above; I have spent that time in minutes in the direct care of this critically ill patient, excluding procedure time. ED Disposition Clinical Impression: Overdose, Suicidal ideation Disposition: [id number]/TX-[id number] PSY HOSP/PSY UNIT Is pt being admited?: No Condition: Stable Referrals: PRIMARY CAREMD [Primary Care Provider] - 3-5 Days Time of Disposition: 04:44
[2017-05-22] MEDS ORDERED: NACL 0.9% 1000 ML 1,000 ML IV ONE (02:33)
[2017-05-22] MEDS ORDERED: CATAPRES PO ONE (02:41)
--- NOTE | 2017-05-22 04:21 | Cat Scan Report ---
FINAL REPORT EXAM: CT HEAD/BRAIN WO CON HISTORY: ams TECHNIQUE: Routine axial imaging was obtained of the brain without IV contrast. Comparison is made to the study of 03/21/2017 FINDINGS: There is mild generalized volume loss. There is no evidence of acute stroke or hemorrhage. The ventricular system is appropriate in size and is symmetric. There are benign basal ganglial calcifications bilaterally. The visualized sinuses are clear. The mastoid air cells are well pneumatized. IMPRESSION: Mild generalized volume loss. No evidence of acute stroke or hemorrhage.
[2017-05-23] MEDS ORDERED: PROAIR IH PRN (22:07)
[2017-05-23] MEDS ORDERED: PROVENTIL IH ONE (23:49)
[2017-05-23] MEDS ORDERED: PROVENTIL IH PRN (23:55)
--- NOTE | 2017-05-24 10:25 | Consultation ---
History of Present Illness - Reason for Consult Consult date: 05/24/17 Reason for consult: Mental Health Evaluation Requesting physician: RISHI NULL - Chief Complaint Chief complaint: "Romansh speaking patient" - History of Present Psychiatric Illness 51 y.o. female brought to [facility] for overdosing on Prather pills. Today patient is calm during the assessment. Interview was completed with the remote broadcast technician line ([id number]). The patient stated that she had not slept for a 2 days because she was feeling sad about being dx with menopause by her doctor months ago. She stated that she took 5 Prather pills to get sleep and to stop her headache. She stated that her menstrual cycle is irregular. She stated lately that she has felt depressed (hopeless and helpless), but denies wanting to kill herself prior to her admission to [facility]. She denies SI/HI's and AVH's. She denies a poor appetite, recreational drug use, and alcohol consumption (etoh). Medications and Allergies Allergies Allergy/AdvReac Type Severity Reaction Status Date / Time No Known Allergies Allergy Unverified 12/15/16 12:08 Home Medications Medication Instructions Recorded Confirmed Last Taken Type Omeprazole 20 mg PO DAILY #30 tablet. 03/23/17 05/23/17 Unknown Rx HYDROcodone/APAP 5-325 [Prather 1 each PO Q6HR PRN #20 tablet 05/20/17 05/23/17 Unknown Rx 5/325] Ondansetron [Zofran Odt] 4 mg PO Q8HR PRN #20 tab.rapdis 05/20/17 05/23/17 Unknown Rx Albuterol Sulfate [Ventolin HFA] 2 puff IH Q4H PRN 05/23/17 05/23/17 Unknown History Active Meds: Active Medications Albuterol (Proventil) 2.5 mg IH Q6H PRN PRN Reason: Shortness Of Breath Stop: 05/26/17 23:54 Past psychiatric history - Past Medical History Past Medical History: other (Menopause) Past Surgical History: No surgical history - past Psychiatric treatment and history psychiatric treatment history: Patient denies a psy hx and a fam psy hx. - Social History Social history: lives with family Mental Status Exam - Vital signs Last Vital Signs Temp 98.5 F 05/23/17 22:00 Pulse 96 H 05/23/17 22:00 Resp 18 05/23/17 22:00 BP 146/91 05/23/17 22:00 Pulse Ox 98 05/23/17 22:00 - Exam Narrative exam: MSE: Appearance: calm, cooperative Behavior: regular eye contact Speech: regular rate and tone Mood: "down" Affect: congruent to mood Thought Process: circumstantial Thought Content: denies SI/HI's and AVH's Motor Activity: sitting up in bed Cognition: A/O x3 Insight: variable Judgment: variable Results Result Diagrams: 05/21/17 22:18 05/21/17 22:18 All other labs normal. Assessment and Plan Assessment and plan: Impression: MDD mild to moderate type. Overdose on 5 Prather Pills. Today patient is calm during the assessment. DDx: R/O Bipolar Recommendation/Plan: Continue 1013 with placement to inpatient psy services. Start Zoloft 50 mg PO daily for depression. Discussed possible suicidality/ medication induced ayana with patient reference Zoloft.
[2017-05-24] MEDS: ZOLOFT PO SCH (22:32)
[2017-05-25] MEDS: ZOLOFT PO SCH (10:12)
--- NOTE | 2017-05-25 10:51 | Progress Note ---
Subjective - Reason for Consult Consult date: 05/25/17 Reason for consult: Psychiatry Follow-up - Chief Complaint Chief complaint: "East Timorese speaking patient" 51 y.o. female brought to [facility] for overdosing on [place] pills. Today patient is calm and cooperative during the assessment. The grit blaster was used (hand miter operator [id number]). The patient stated that she miss her family and would like to return home soon. She is adamant that she did not try to kill herself when she took the 5 [place] pills. She denies SI/HI's and AVH's. She denies any side effects of her medication. Per collateral from a staff member (Kayla) who work in the ER, she stated that the patient acknowledged trying to kill herself when she took the [place] pills per a family member. She stated that the patient told a family member that she wanted to . Per Kayla, the staff member, the patient maybe having marital problems with her . Mental Status Exam - Vital signs Last Vital Signs Temp 98.5 F 05/24/17 22:00 Pulse 94 H 05/24/17 22:00 Resp 18 05/24/17 22:00 BP 141/96 05/24/17 22:00 Pulse Ox 98 05/24/17 22:00 - Exam Narrative exam: MSE: Appearance: calm, cooperative Behavior: regular eye contact Speech: regular rate and tone Mood: "okay" Affect: congruent to mood Thought Process: circumstantial Thought Content: denies SI/HI's and AVH's Motor Activity: sitting up in bed Cognition: A/O x3 Insight: variable Judgment: variable Assessment and Plan Impression: After gathering more collateral, patient's dx is still MDD, but changed to severe type. Overdose on 5 [place] Pills. Today patient is calm during the assessment. DDx: R/O Bipolar Recommendation/Plan: Continue 1013 with placement to inpatient psy services. Continue Zoloft 50 mg PO daily for depression. Discussed possible suicidality/ medication induced ayana with patient reference Zoloft.
[2017-05-26] MEDS: ZOLOFT PO SCH (10:01)
[2017-05-26] MEDS ORDERED: PROAIR IH PRN (16:27)
[2017-05-26] MEDS ORDERED: VALSARTAN HCTZ PO SCH (16:30)
[2017-05-26] MEDS ORDERED: NON-FORMULARY (Omeprazole [Omeprazole] 20 MG) PO SCH (16:30)
[2017-05-26] MEDS: PROTONIX PO SCH (17:10)
[2017-05-26] MEDS ORDERED: PROVENTIL IH PRN ×2 (17:26→17:28)
[2017-05-26] MEDS: NON-FORMULARY PO SCH (17:53)
[2017-05-26] MEDS ORDERED: GLIPIZIDE METFORMIN PO SCH (22:00)
[2017-05-27] MEDS: NON-FORMULARY PO SCH (06:35)
[2017-05-27 08:31] VITALS: BP 166/100
[2017-05-27] MEDS: ZOLOFT PO SCH (09:52)
[2017-05-27] MEDS: PROTONIX PO SCH (09:52)
[2017-05-27] MEDS ORDERED: DIOVAN PO SCH (10:00)
--- NOTE | 2017-05-27 10:26 | Progress Note ---
Subjective - Reason for Consult Consult date: 05/27/17 Reason for consult: Psychiatry Follow-up - Chief Complaint Chief complaint: "Djiboutian speaking patient" 51 y.o. female brought to [facility] for overdosing on Cor[place] pills. Today patient is calm and cooperative during the assessment. The rubber flap cutter was used (recovery unit operator [id number]). She is still adamant that she didn't want to kill herself when she took the [place] pills. She stated that she would like a referral to speak with a psychiatrist and therapist once discharged. She denies SI/HI's and AVH's. She denies any side effects of her medication. Mental Status Exam - Vital signs Last Vital Signs Temp 98 F 05/27/17 08:30 Pulse 78 05/27/17 08:30 Resp 18 05/27/17 08:31 BP 166/100 05/27/17 08:30 Pulse Ox 99 05/27/17 08:30 - Exam Narrative exam: MSE: Appearance: calm, cooperative Behavior: regular eye contact Speech: regular rate and tone Mood: "okay" Affect: congruent to mood Thought Process: linear Thought Content: denies SI/HI's and AVH's Motor Activity: sitting up in bed Cognition: A/O x3 Insight: appropriate Judgment: appropriate Assessment and Plan Impression: MDD, severe type. Overdose on 5 Corning Pills. Today patient is calm during the assessment. Patient is no threat to self. DDx: R/O Bipolar I. This screening and assessment is based on information collected from the following sources: II. SUICIDE RISK SCREENING (within last 30 days): A.) Suicidal thoughts/behaviors: Yes SUICIDE RISK ASSESSMENT III. FACTORS THAT INCREASE RISK: A.) Demographic and Substance Use Factors: No B.) Current/Recent Factors (within past 3 months): Psychosocial/Environmental Factors: Marital Problems Physical Illness: Dx with Menopause recently Cognitive/Psychological Factors: None C.) Historical Factors: None D.) Diagnostic/Symptom/Treatment Factors: None E.) Acute Risk Factor Severity (DESC; MILD/MOD/SEVERE): Mild Other factors for this individual that increase risk: None IV. FACTORS THAT DECREASE RISK: Resilience/Protective Factors: Patient want to decrease her stress Other factors for this individual that decrease risk: Patient denies a desire to harm self V. Clinician's Formulation of Risk and Determination of level of Care: This is a 51-year-old female who is experiencing menopausal symptoms. Patient was concerned about her sleep and having pain, so she decided to take multiple Corning pills (5) prior to her admission to [facility]. Since her admission, she stated that her actions were not safe. Since being hospitalized the patient has consistently denied the desire to harm herself. Additionally, she has become insightful about how to better address her current issues. Patient is not impaired by substance. She is able to take care of her ADLs and is not at imminent risk of harm to self or others. Consequently, it is the opinion of the treatment team that the patient is at low risk of suicide and does not meet criteria to continue an involuntary psychiatric hold. Estimation of Imminent Risk: Low due to the above explanation. Determination of Level of Care based on Suicide Risk: Outpatient follow-up. Narrative description of clinical reasoning. (This must be completed on all patients): . Plan and Interventions based on Suicide Risk: This patient will likely be stepped down to an outpatient mental health center in the community upon discharge and follow-up within 7 days of her discharge from the hospital. VII. Discharge/After Hours Support Plan: Patient can return back to the ER, call 911 or crisis line if symptoms of depression, anxiety, suicidality return. Recommendation/Plan: Rescind 1013. Continue Zoloft 50 mg PO daily for depression. Discussed possible suicidality/medication induced ayana with patient reference Zoloft. Discusses generalized coping skills with patient. Patient given outpatient psy services for [facility].
== END 2017-05-27 13:18 ==
LOC: EEVIPCON 21:29 → ED 21:29
DX: T39.1X2A Poisoning by 4-Aminophenol derivatives, intentional self-harm, initial encounter (principal); I10 Essential (primary) hypertension; E11.9 Type 2 diabetes mellitus without complications; J45.909 Unspecified asthma, uncomplicated; E78.00 Pure hypercholesterolemia, unspecified; Z90.49 Acquired absence of other specified parts of digestive tract; Z79.899 Other long term (current) drug therapy; Y92.89 Other specified places as the place of occurrence of the external cause
CPT/HCPCS: 36415; 70450; 80053; 80307; 81001; 82962; 84703; 85025; 93005; 93010; 96361; 96374; 99285; G0480; J2310; J7030; 80320

== ENCOUNTER 2017-09-05 12:42 | Outpatient (CLI) | payer SELFPAY | END 2017-09-05 12:43 | disposition home or self-care (01) | LOC: LAB 12:42 | PROVIDERS: ATTEND Internal Medicine | DX: E11.9 Type 2 diabetes mellitus without complications (principal); I10 Essential (primary) hypertension; E78.00 Pure hypercholesterolemia, unspecified; J45.909 Unspecified asthma, uncomplicated; Z79.899 Other long term (current) drug therapy | CPT/HCPCS: 36415; 83036 ==

== ENCOUNTER 2018-02-12 09:39 | Outpatient (CLI) | payer OTHER ==
[2018-02-12 10:31] LABS: Basophils # (Auto) 0.1 K/mm3 (0.0-0.1); Basophils % (Auto) 0.7 % (0.0-1.8); Eosinophils # (Auto) 0.3 K/mm3 (0.0-0.4); Hematocrit 37.4 % (30.3-42.9); Hemoglobin 12.4 gm/dl (10.1-14.3); Lymphocytes # (Auto) 2.8 K/mm3 (1.2-5.4); Lymphocytes % (Auto) 34.5 % (13.4-35.0); Mean Corpuscular HGB Conc 33 % (30-34); Mean Corpuscular Hemoglobin 26 pg (28-32); Mean Corpuscular Volume 80 fl (79-97); Monocytes # (Auto) 0.6 K/mm3 (0.0-0.8); Monocytes % (Auto) 7.9 % (0.0-7.3); Platelet Count 253 K/mm3 (140-440)
[2018-02-12 10:50] LABS: Free T4 (Free Thyroxine) 0.97 ng/dL (0.76-1.46)
[2018-02-12 11:12] LABS: Alanine Aminotransferase 33 units/L (7-56); Albumin 4.1 g/dL (3.9-5); BUN/Creatinine Ratio 22; Blood Urea Nitrogen 13 mg/dL (7-17); Hemolysis Index 0
[2018-02-12 17:29] LABS: HDL Cholesterol 50 mg/dL (40-59); LDL Cholesterol,Direct 160 mg/dL (50-130)
== END 2018-02-12 09:40 | disposition home or self-care (01) ==
LOC: LAB 09:39
PROVIDERS: ATTEND Internal Medicine
DX: E11.9 Type 2 diabetes mellitus without complications (principal); I10 Essential (primary) hypertension; E78.5 Hyperlipidemia, unspecified; R63.0 Anorexia; K22.2 Esophageal obstruction; E78.00 Pure hypercholesterolemia, unspecified; J45.909 Unspecified asthma, uncomplicated; Z90.49 Acquired absence of other specified parts of digestive tract
CPT/HCPCS: 36415; 80053; 80061; 82306; 82607; 83036; 84439; 84443; 85025